=== PATIENT | female | born 1970 | race Caucasian/White ===

== ENCOUNTER 2017-02-23 08:03 | Day surgery (SDC) | payer OTHER ==
--- NOTE | ~2017-02-23 | CN ---
Consultation Report [facility] [address] [place]. [address] NAME: MELISSA PEREZ : 72 STATUS : REG [facility] [place] PAT#: [id number] AGE: 47 ADM/REG DATE : 02/23/17 MR#: [id number] REPORT SERV DATE: 02/23/17 DICTATED BY: JULISSA MARVIN DATE: 02/23/17 REPORT STATUS : Draft TRANSCRIBED BY: MODBryan DATE: 02/23/17 CONSULTATION DATE OF CONSULTATION: Dear Dr. Dick Gallegos: Thank you for requesting my opinion regarding evaluation and management of Ms. Melissa Perez's right upper lobe lung mass and mediastinal lymphadenopathy. Ms. Perez is a 47- year-old female with a significant past medical history of chronic joint pain, acne, bipolar disease, anxiety, hypothyroidism, and heavy tobacco abuse, who presents to [facility] for formal evaluation of a right-sided lung mass. The patient's history is limited by her exhaustion. She had apparently stayed up all night due to severe anxiety. She states that, she has mild shortness of breath well localized to the chest, nonradiating with no significant or other exacerbating factors. She carries a diagnosis of asthma and smoked for approximately thirty years at least one pack per day. Her father of lung cancer. She is currently on disability and has no history of occupational exposures. She denies any fevers, chills, night sweats, hemoptysis, nausea, vomiting, diarrhea, constipation, or aspiration event. REVIEW OF SYSTEMS: A detailed 14-point review of systems was completed. Pertinent positives and negatives are listed above. ALLERGIES: ALBUTEROL, AMITRIPTYLINE, BUSPAR, CORTICOSTEROIDS, GEODON, AND IBUPROFEN. HOME MEDICATIONS: Reviewed and located in the paper chart. PAST MEDICAL HISTORY: 1. History of bronchitis. 2. History of cystitis. 3. Allergic rhinitis. 4. Anxiety. 5. Arthritis. 6. Asthma. 7. Bacterial vaginosis history. 8. Cystic acne vulgaris. 9. Depression. 10.Dysmenorrhea. 11.GERD. 12.High-risk sexual behavior. 13.Hypothyroidism. 14.Chronic lumbar pain. 15.Ulcerative colitis. 16.History of urinary tract infections. Consultation Report [facility] [address] [place]. [address] NAME: MELISSA PEREZ : 72 STATUS : REG [facility] PAT#: [id number] AGE: 47 ADM/REG DATE : 02/23/17 MR#: [id number] REPORT SERV DATE: 02/23/17 DICTATED BY: JULISSA MARVIN DATE: 02/23/17 REPORT STATUS : Draft TRANSCRIBED BY: MODBryan DATE: 02/23/17 PAST SURGICAL HISTORY: As above. FAMILY HISTORY: Father of lung cancer. SOCIAL HISTORY: The patient smokes one pack per day for approximately thirty years. She denies any significant alcohol or illicit drug abuse. She has high-risk sexual behaviors. She is currently on disability as a result of her ulcerative colitis. PHYSICAL EXAMINATION: VITAL SIGNS: 5 foot, 106/58, pulse of 68, respiratory rate of 16, 94%. The patient weighs 247 pounds. GENERAL: No acute distress. Not very well engaged with the conversation. The patient easily falls asleep, but is appropriate when awaken. HEENT: Normocephalic, atraumatic. Pupils are equal, round, and reactive to light and accommodation. Posterior oropharynx is clear. NECK: Thick neck. CARDIOVASCULAR: Regular rate and rhythm. S1 and S2 present. LUNGS: Diminished breath sounds bilaterally. ABDOMEN: Protuberant, nontender, nondistended. Soft, positive bowel sounds. EXTREMITIES: No clubbing, cyanosis, or edema. PSYCHIATRIC: Alert and oriented x3. Appropriate mood and affect, but disinterested in exam and somnolent, presumably from staying up all night and tired as per patient's boyfriend, who is by the bedside. NEUROLOGIC: 5/5 strength in upper and lower extremities. SKIN: Acne vulgaris. IMAGING: CT scan of the chest performed on 02/15/2017 demonstrates a right upper lobe lung mass measuring 4.6 x 2.6 cm involving the mediastinum and alyson. The lesion is in contact with the right mainstem bronchus, right main pulmonary artery and the IVC, metastatic paratracheal and subcarinal adenopathy, the largest lymph node measuring 2.6 x 1.7 cm, postobstructive pneumonitis in the right upper lobe. ASSESSMENT AND PLAN: Ms. Perez is a pleasant 47-year-old female with a significant past medical history of heavy tobacco abuse, bipolar disorder, and family history of lung cancer, who presents to [facility] for formal evaluation of a right upper lobe lung mass measuring 4.6 cm in largest diameter and local regional mediastinal enlarged lymph nodes. The clinical and radiographic presentation is most consistent with primary bronchogenic carcinoma or lymphoma. Other potential etiologies include an inflammatory process, but unlikely given the size and appearance on the CT scan and her risk factors. At this point, Ms. Perez mandates an appropriate biopsy. We discussed in detail potential options for biopsy including CT-guided needle biopsy, thoracic surgical biopsy, and EBUS bronchoscopy. Given the location of the lymph nodes and mass abutting the main airways, EBUS bronchoscopy is the most reasonable procedure to obtain a diagnosis. Consultation Report [address] [place]. [address] NAME: MELISSA PEREZ : 72 STATUS : REG [facility] PAT#: [id number] AGE: 47 ADM/REG DATE : 02/23/17 MR#: [id number] REPORT SERV DATE: 02/23/17 DICTATED BY: JULISSA MARVIN DATE: 02/23/17 REPORT STATUS : Draft TRANSCRIBED BY: ARINA DATE: 02/23/17 The patient is aware that EBUS bronchoscopy is associated with potential life-threatening risks, including lung collapse, respiratory failure, and even . RECOMMENDATIONS: A summary of my recommendations are as follows: 1. Proceed with EBUS bronchoscopy. 2. Further recommendations will be stated in the operative report in [employer] and [employer]. Thank you for allowing me to participate in Ms. Perez's care. Sincerely, VANESSA/ARINA Julissa Marvin M.D. / [id number] CC: Shiloh Fisher M.D.
--- NOTE | ~2017-02-23 | EGD ---
EGD REPORT [facility] [address] [address] NAME: MELISSA PEREZ : 72 STATUS : REG [facility]#: [id number] AGE: 47 ADM/REG DATE : 02/23/17 MR#: [id number] REPORT SERV DATE: 02/23/17 DICTATED BY: RG MARVIN DATE: 02/23/17 REPORT STATUS : Draft [facility]ANSCRIBED BY: [facility] DATE: 02/23/17 Pulmonology Patient Name: Melissa Perez Procedure Date: 02/23/2017 10:41 AM Date of : 1970 Attending MD: WAYLON MARVIN MD Procedure Date No Time: 02/23/2017 Procedure: EBUS Indications: RUL lung mass and mediastinal adenopathy highly suspicious for primary bronchogenic carcinoma Providers: WAYLON MARVIN MD Referring MD: JOHN RICHARDSON Medicines: Lidocaine 2% 20 mL topical Complications: No immediate complications Procedure: Pre-Anesthesia Assessment: - ASA Grade Assessment: III - A patient with severe systemic disease. - After reviewing the risks and benefits, the patient was deemed in satisfactory condition to undergo the procedure. - A History and Physical has been performed. Patient meds and allergies have been reviewed. The risks and benefits of the procedure and the sedation options and risks were discussed with the patient. All questions were answered and informed consent was obtained. Patient identification and proposed procedure were verified prior to the procedure by the physician and the nurse in the pre-procedure area. Mental Status Examination: alert and oriented. CV Examination: normal and RRR, no murmurs, no S3 or S4. ASA Grade Assessment: III - A patient with severe systemic disease. After reviewing the risks and benefits, the patient was deemed in satisfactory condition to undergo the procedure. The anesthesia plan was to use general anesthesia. Immediately prior to administration of medications, the patient was re-assessed for adequacy to receive sedatives. The heart rate, respiratory rate, oxygen saturations, blood pressure, adequacy of pulmonary ventilation, and response to care were monitored throughout the procedure. The physical status of the patient was re-assessed after the procedure. After obtaining informed consent, the Bronchoscope was introduced through the mouth, via the endotracheal tube (the patient was intubated for the procedure) and advanced to the tracheobronchial tree. the BF [id number] was introduced through the mouth, via the EGD [address] [address] NAME: MELISSA PEREZ : 72 STATUS : REG [facility] [place] PAT#: [id number] AGE: 47 ADM/REG DATE : 02/23/17 MR#: [id number] REPORT SERV DATE: 02/23/17 DICTATED BY: RG MARVIN DATE: 02/23/17 REPORT STATUS : Draft TRANSCRIBED BY: [employer] DATE: 02/23/17 endotracheal tube (the patient was intubated for the procedure) and advanced to the tracheobronchial tree. The procedure was accomplished without difficulty. The patient tolerated the procedure well. Findings: The endotracheal tube is in good position. The visualized portion of the trachea is of normal caliber. The guero is sharp. The tracheobronchial tree was examined to at least the first subsegmental level. RUL airway invasion noted with only minimal narrowing of the CHELLE. Bronchoalveolar lavage was performed in the right upper lobe of the lung and sent for routine cytology. 180 mL of fluid were instilled. 180 mL were returned. The return was blood-tinged and cellular. Brushings were obtained in the right mainstem bronchus of the lung and sent for routine cytology. One sample was obtained. Endobronchial biopsies were performed in the right upper lobe of the lung using a forceps and sent for histopathology examination. Two samples were obtained. Ballon bronchoplasty performed with a ayesha number 4 with improvement in aeration of the RUL from 100% obstruction to 75%. EBUS TBNA of lymph node level 11L x 4 passes for cytology EBUS TBNA of lymph node level 7 x 4 passes for cytology EBUS TBNA of lymph node level 4R x 8 passes for cytology The FiO2 was lowered to less than 40% and argon plasma coagulation therapy was performed for destruction of tissue and hemostasis to the CHELLE endobronchial tumor. 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 Recommendation: - Await test results. - Chest X-ray post-procedure. - Refer to/consult with Oncology. - Refer to/consult with Radiation Oncology. - Refer to/consult with Thoracic Surgery. - Complete pulmonary function tests to assess operability. - PET scan. - MRI of the brain with and without contrast - Nurse Navigator consultation Attending Participation: I personally performed the entire procedure. WAYLON MARVIN MD 02/23/2017 11:40 AM This report has been signed electronically. Number of Addenda: 0 EGD REPORT [facility] [address] [address] NAME: MELISSA PEREZ : 72 STATUS : REG [facility] PAT#: [id number] AGE: 47 ADM/REG DATE : 02/23/17 MR#: [id number] REPORT SERV DATE: 02/23/17 DICTATED BY: RG MARVIN DATE: 02/23/17 REPORT STATUS : Draft TRANSCRIBED BY: [employer] DATE: 02/23/17 Note Initiated On: 02/23/2017 10:41 AM [address] [address]
[~2017-02-23 08:03] MED LIST: CYMBALTA60 PO; CYTO5 PO; ESKALITH PO; METHOC750B PO; OXYCOD PO; PREV15 PO; PRILOSEC40 MG PO; SYN.05 PO; VENTOLIN HFA INH; XANAX1 MG PO; ZOFRAN8 PO
[2017-02-23 08:32] LABS: INTERNATIONAL NORMAL RATI 1.1 UNITS (-); PARTIAL THROMBO TIME 29.7 SEC (22.5-37.2)
[2017-02-23 08:35] LABS: BASOPHILS 0.5 %; BASOPHILS ABSOLUTE 0.05 10/3/uL (0.0-0.16); EOSINOPHILS 3.7 %; EOSINOPHILS ABSOLUTE 0.35 10/3/uL (0.0-0.53); HEMATOCRIT 42.1 % (36.0-48.0); HEMOGLOBIN 14.4 g/dL (12.0-16.0); IMMATURE GRANULOCYTES 0.3 %; IMMATURE GRANULOCYTES ABSOLUTE 0.03 10/3/uL (0.0-0.11); LYMPHOCYTES 30.2 %; LYMPHOCYTES ABSOLUTE 2.88 10/3/uL (0.67-4.30); MEAN CORPUS HGB CONC 34.2 g/dL (32.0-36.0); MEAN CORPUSCULAR HEMOGLOB 30.3 pg (26.0-34.0); MEAN CORPUSCULAR VOLUME 88.4 fL (80-100); MEAN PLATELET VOLUME 9.2 fL (9.2-13.0); MONOCYTES 7.8 %; MONOCYTES ABSOLUTE 0.74 10/3/uL (0.21-1.20); NEUTROPHILS 57.5 %; NEUTROPHILS ABSOLUTE 5.48 10/3/uL (2.02-8.40); PLATELET COUNT 284 10/3/uL (150-400); RBC DISTRIBUTION WIDTH 13.8 % (12.0-16.0); RED CELL COUNT 4.76 10/6/uL (4.0-5.6); WHITE BLOOD CELLS 9.5 10/3/uL (4.5-10.5)
[2017-02-23 08:36] LABS: MANUAL DIFF NO %
== END 2017-02-23 23:59 | disposition home or self-care (01) ==
LOC: DMU 08:03
PROVIDERS: Internal Medicine
PROC: 07974ZX Drainage of Thorax Lymphatic, Percutaneous Endoscopic Approach, Diagnostic (ICD-10-PCS; principal; 2017-02-23 09:30)
PROC: 0B9C8ZX Drainage of Right Upper Lung Lobe, Via Natural or Artificial Opening Endoscopic, Diagnostic (ICD-10-PCS; 2017-02-23 09:30)
PROC: 0BB48ZX Excision of Right Upper Lobe Bronchus, Via Natural or Artificial Opening Endoscopic, Diagnostic (ICD-10-PCS; 2017-02-23 09:30)
PROC: 0BQ Respiratory System, Repair (ICD-10-PCS; 2017-02-23 09:30)
DX: C34.11 Malignant neoplasm of upper lobe, right bronchus or lung (principal); C77.1 Secondary and unspecified malignant neoplasm of intrathoracic lymph nodes; J44.9 Chronic obstructive pulmonary disease, unspecified; E03.9 Hypothyroidism, unspecified; G47.33 Obstructive sleep apnea (adult) (pediatric); F17.210 Nicotine dependence, cigarettes, uncomplicated; F31.9 Bipolar disorder, unspecified; Z88.8 Allergy status to other drugs, medicaments and biological substances; Z79.899 Other long term (current) drug therapy
CPT/HCPCS: 71010; 84703; 85025; 85610; 85730; 88112; 88172; 88173; 88305; 88333; 88341; 88342; 88344; 88360; 94640; C1725; C1757; J2405; J2710; J3010